=== PATIENT | female | born 1965 | race Caucasian/White ===

== ENCOUNTER 2023-11-14 13:48 | Outpatient (RCR) | payer MEDICARE, SELFPAY ==
[2023-11-14] MEDS: NSS 250 IV (14:29)
[2023-11-14] MEDS: ORENCIA 100 MG IV (14:30)
[2023-11-14 14:36] VITALS: BP 148/76
[2023-11-14 15:31] LABS: Iron 56 ug/dl (37-170)
[2023-11-14 15:40] LABS: Percent Saturation 15 % (20-50); Total Iron Binding Capacity 356 ug/dl (265-497)
[2023-11-14 17:14] LABS: Ferritin 11.7 ng/ml (11.1-264.0)
[2023-11-14 17:28] LABS: Vitamin B12 299 pg/ml (239-931)
== END 2023-11-15 10:51 | disposition home or self-care (01) ==
LOC: OID 13:48
PROVIDERS: ATTENDING PHYSICIAN Internal Medicine Rheumatology; FAMILY PHYSICIAN Family Medicine
DX: M06.4 Inflammatory polyarthropathy (principal); M35.00 Sjogren syndrome, unspecified
CPT/HCPCS: 82607; 82728; 83540; 83550; 96365; J0129

== ENCOUNTER 2023-12-26 12:53 | Outpatient (RCR) | payer MEDICARE, SELFPAY ==
[2023-12-26 13:05] VITALS: BP 150/90
[2023-12-26] MEDS: ORENCIA 100 MG IV (13:20)
[2023-12-26] MEDS: NSS 250 IV (13:20)
== END 2023-12-27 09:12 | disposition home or self-care (01) ==
LOC: OID 12:53
PROVIDERS: ATTENDING PHYSICIAN Internal Medicine Rheumatology; FAMILY PHYSICIAN Family Medicine
DX: M06.4 Inflammatory polyarthropathy (principal); M35.00 Sjogren syndrome, unspecified
CPT/HCPCS: 96365; J0129

== ENCOUNTER 2024-01-30 12:49 | Outpatient (RCR) | payer MEDICARE, SELFPAY ==
[2024-01-30 13:05] VITALS: BP 153/92
[2024-01-30] MEDS: NSS 250 IV (13:26)
[2024-01-30] MEDS: ORENCIA 100 MG IV (13:26)
[2024-01-30 14:15] VITALS: BP 135/80
== END 2024-01-30 14:49 | disposition home or self-care (01) ==
LOC: OID 12:49
PROVIDERS: ATTENDING PHYSICIAN Internal Medicine Rheumatology; FAMILY PHYSICIAN Family Medicine
DX: M06.4 Inflammatory polyarthropathy (principal); M35.00 Sjogren syndrome, unspecified
CPT/HCPCS: 96365; J0129

== ENCOUNTER 2024-03-04 14:51 | Outpatient (RCR) | payer MEDICARE, SELFPAY ==
[2024-03-04 14:25] VITALS: BP 129/68
[2024-03-04] MEDS: NSS 250 IV (15:17)
[2024-03-04] MEDS: ORENCIA 100 MG IV (15:18)
[2024-03-04 15:24] VITALS: BMI 40.5
[2024-03-04 15:27] LABS: % Basophils 0.6 % (0-2); % Eosinophils 1.9 % (0-6); % Immature Granulocytes 0.3 % (0-0.5); % Lymphocytes 22.9 % (20.5-51.1); % Monocytes 5.2 % (1.7-9.3); % Neutrophils 69.1 % (42.2-75.2); Absolute Basophils 0.1 10^3/uL (0-0.2); Absolute Eosinophils 0.2 10^3/uL (0-0.7); Absolute Lymphocytes 2.3 10^3/uL (1.2-3.4); Absolute Monocytes 0.5 10^3/uL (0.1-0.6); Absolute Neutrophils 6.8 10^3/uL (1.4-6.5); Hematocrit 36.8 % (37.0-47.0); Hemoglobin 12.4 g/dL (12.0-16.0); Mean Corp Hgb Conc. 33.7 g/dL (33.0-37.0); Mean Corpuscular Hgb 28.1 pg (27.0-31.0); Mean Corpuscular Volume 83.4 fL (81.0-99.0); Mean Platelet Volume 9.3 fL (7.4-10.4); Nucleated Red Blood Cells % 0 %; Platelet Count 298 10^3/uL (130-400); Red Blood Cell Count 4.41 10^6/uL (4.20-5.40); Red Cell Dist. Width 14.6 % (11.5-14.5); White Blood Cell Count 9.9 10^3/uL (4.8-10.8)
[2024-03-04 15:42] LABS: ALT (SGPT) 21 U/L (0-35); AST (SGOT) 25 U/L (14-36); Albumin 4.2 g/dl (3.5-5.0); Alkaline Phosphatase 83 U/L (38-126); Blood Urea Nitrogen 22 mg/dl (7-17); Carbon Dioxide 23 mmol/L (22-30); Chloride 99 mmol/L (98-107); Estimated Creatinine Clearance 55 ml/min; Glucose 156 mg/dl (70-99); Potassium 5.3 mmol/L (3.5-5.1); Sodium 133 mmol/L (135-145); Total Bilirubin 0.3 mg/dl (0.2-1.3); Total Protein 6.5 g/dl (6.3-8.2); eGFR 39.89
[2024-03-04 15:43] LABS: C-Reactive Protein < 5.00 mg/L (0.0-10.00)
[2024-03-04 16:00] LABS: Erythrocyte Sed Rate 19 mm/hour (0-20)
[2024-03-04 16:52] LABS: TSH 0.34 uIU/ml (0.47-4.68)
[2024-03-05 08:53] LABS: Glycohemoglobin (HgbA1c) 7.3 % (4.0-5.6)
== END 2024-03-23 23:59 | disposition home or self-care (01) ==
LOC: OID 14:51
PROVIDERS: ATTENDING PHYSICIAN Internal Medicine Rheumatology; FAMILY PHYSICIAN Family Medicine; OTHER PHYSICIAN Internal Medicine Endocrinology, Diabetes & Metabolism
DX: M06.4 Inflammatory polyarthropathy (principal); M35.00 Sjogren syndrome, unspecified
CPT/HCPCS: 36415; 80053; 83036; 84443; 85025; 85652; 86140; 96361; 96365; J0129

== ENCOUNTER 2024-04-02 13:33 | Outpatient (RCR) | payer MEDICARE, SELFPAY ==
[2024-04-02 13:51] VITALS: BP 154/76
[2024-04-02] MEDS: NSS 250 IV (14:10)
[2024-04-02] MEDS: ORENCIA 100 MG IV (14:11)
== END 2024-04-03 14:03 | disposition home or self-care (01) ==
LOC: OID 13:33
PROVIDERS: ATTENDING PHYSICIAN Internal Medicine Rheumatology; FAMILY PHYSICIAN Family Medicine; OTHER PHYSICIAN Internal Medicine Endocrinology, Diabetes & Metabolism
DX: M06.4 Inflammatory polyarthropathy (principal); M35.00 Sjogren syndrome, unspecified
CPT/HCPCS: 96365; J0129

== ENCOUNTER 2024-05-07 13:36 | Outpatient (RCR) | payer MEDICARE, SELFPAY ==
[2024-05-07 13:45] VITALS: BP 151/73
[2024-05-07] MEDS: ORENCIA 100 MG IV (14:07)
[2024-05-07] MEDS: NSS 250 IV (14:07)
== END 2024-05-08 09:38 | disposition home or self-care (01) ==
LOC: OID 13:36
PROVIDERS: ATTENDING PHYSICIAN Internal Medicine Rheumatology; FAMILY PHYSICIAN Family Medicine; OTHER PHYSICIAN Internal Medicine Endocrinology, Diabetes & Metabolism
DX: M06.4 Inflammatory polyarthropathy (principal); M35.00 Sjogren syndrome, unspecified
CPT/HCPCS: 96365; J0129

== ENCOUNTER 2024-06-04 13:31 | Outpatient (RCR) | payer MEDICARE, SELFPAY ==
[2024-06-04 13:55] VITALS: BP 154/72
[2024-06-04] MEDS: NSS 250 IV (14:11)
[2024-06-04] MEDS: ORENCIA 100 MG IV (14:15)
== END 2024-06-05 10:49 | disposition home or self-care (01) ==
LOC: OID 13:31
PROVIDERS: ATTENDING PHYSICIAN Internal Medicine Rheumatology; FAMILY PHYSICIAN Family Medicine; OTHER PHYSICIAN Internal Medicine Endocrinology, Diabetes & Metabolism
DX: M06.4 Inflammatory polyarthropathy (principal); M35.00 Sjogren syndrome, unspecified
CPT/HCPCS: 96365; J0129

== ENCOUNTER 2024-07-02 13:53 | Outpatient (RCR) | payer MEDICARE, SELFPAY ==
[2024-07-02 14:29] VITALS: BP 142/71
[2024-07-02] MEDS: ORENCIA 100 MG IV (14:31)
[2024-07-02] MEDS: NSS 250 IV (14:32)
== END 2024-07-24 23:59 | disposition home or self-care (01) ==
LOC: OID 13:53
PROVIDERS: ATTENDING PHYSICIAN Internal Medicine Rheumatology; FAMILY PHYSICIAN Family Medicine; OTHER PHYSICIAN Internal Medicine Endocrinology, Diabetes & Metabolism
DX: M06.4 Inflammatory polyarthropathy (principal); M35.00 Sjogren syndrome, unspecified
CPT/HCPCS: 96365; J0129

== ENCOUNTER 2024-07-30 13:42 | Outpatient (RCR) | payer MEDICARE, SELFPAY ==
[2024-07-30] MEDS: NSS 250 IV (14:08)
[2024-07-30] MEDS: ORENCIA 100 MG IV (14:09)
[2024-07-30 14:13] VITALS: BP 139/90
== END 2024-07-31 10:48 | disposition home or self-care (01) ==
LOC: OID 13:42
PROVIDERS: ATTENDING PHYSICIAN Internal Medicine Rheumatology; FAMILY PHYSICIAN Family Medicine; OTHER PHYSICIAN Internal Medicine Endocrinology, Diabetes & Metabolism
DX: M06.4 Inflammatory polyarthropathy (principal); M35.00 Sjogren syndrome, unspecified
CPT/HCPCS: 96365; J0129

== ENCOUNTER → 2024-08-16 12:34 | Outpatient (REF) | payer MEDICARE, SELFPAY | LOC: MRI 3T 12:34 | PROVIDERS: ATTENDING PHYSICIAN Specialist; FAMILY PHYSICIAN Family Medicine; REFERRING PHYSICIAN Pain Medicine Interventional Pain Medicine | DX: M54.16 Radiculopathy, lumbar region (principal) | CPT/HCPCS: 72148 ==

== ENCOUNTER 2024-08-26 13:39 | Outpatient (RCR) | payer MEDICARE, SELFPAY ==
[2024-08-26 13:58] VITALS: BP 130/90
[2024-08-26] MEDS: ORENCIA 100 MG IV (14:10)
== END 2024-08-27 08:13 | disposition home or self-care (01) ==
LOC: OID 13:39
PROVIDERS: ATTENDING PHYSICIAN Internal Medicine Rheumatology; FAMILY PHYSICIAN Family Medicine; OTHER PHYSICIAN Internal Medicine Endocrinology, Diabetes & Metabolism
DX: M06.4 Inflammatory polyarthropathy (principal); M35.00 Sjogren syndrome, unspecified
CPT/HCPCS: 96365; J0129

== ENCOUNTER → 2024-09-19 15:06 | Outpatient (REF) | payer MEDICARE, SELFPAY | LOC: RAD 15:06 | PROVIDERS: ATTENDING PHYSICIAN Pain Medicine Interventional Pain Medicine; FAMILY PHYSICIAN Family Medicine | DX: Z01.818 Encounter for other preprocedural examination (principal) | CPT/HCPCS: 93005 ==

== ENCOUNTER 2024-10-01 13:38 | Outpatient (RCR) | payer MEDICARE, SELFPAY ==
[2024-10-01 13:50] VITALS: BP 171/94
[2024-10-01] MEDS: ORENCIA 100 MG IV (14:05)
[2024-10-01] MEDS: NSS 250 IV (14:06)
[2024-10-01 14:17] VITALS: BP 150/81
== END 2024-10-02 08:51 | disposition home or self-care (01) ==
LOC: OID 13:38
PROVIDERS: ATTENDING PHYSICIAN Internal Medicine Rheumatology; FAMILY PHYSICIAN Family Medicine; OTHER PHYSICIAN Internal Medicine Endocrinology, Diabetes & Metabolism
DX: M06.4 Inflammatory polyarthropathy (principal); M35.00 Sjogren syndrome, unspecified
CPT/HCPCS: 96365; J0129

== ENCOUNTER 2024-10-29 13:32 | Outpatient (RCR) | payer MEDICARE, SELFPAY ==
[2024-10-29 13:45] VITALS: BP 139/88
[2024-10-29] MEDS: NSS 250 IV (14:07)
[2024-10-29] MEDS: ORENCIA 100 MG IV (14:08)
== END 2024-10-30 09:02 | disposition home or self-care (01) ==
LOC: OID 13:32
PROVIDERS: ATTENDING PHYSICIAN Internal Medicine Rheumatology; FAMILY PHYSICIAN Family Medicine; OTHER PHYSICIAN Internal Medicine Endocrinology, Diabetes & Metabolism
DX: M06.4 Inflammatory polyarthropathy (principal); M35.00 Sjogren syndrome, unspecified
CPT/HCPCS: 96365; J0129

== ENCOUNTER 2024-12-01 13:39 | Outpatient (RCR) | payer MEDICARE, SELFPAY ==
[2024-12-01 14:00] VITALS: BP 136/50
[2024-12-01] MEDS: NSS 250 IV (14:08)
[2024-12-01] MEDS: ORENCIA 100 MG IV (14:08)
== END 2024-12-02 09:45 | disposition home or self-care (01) ==
LOC: OID 13:39
PROVIDERS: ATTENDING PHYSICIAN Internal Medicine Rheumatology; FAMILY PHYSICIAN Family Medicine; OTHER PHYSICIAN Internal Medicine Endocrinology, Diabetes & Metabolism
DX: M06.4 Inflammatory polyarthropathy (principal); M35.00 Sjogren syndrome, unspecified
CPT/HCPCS: 96365; J0129

== ENCOUNTER 2025-01-14 14:11 | Outpatient (RCR) | payer MEDICARE, SELFPAY ==
[2025-01-14] MEDS: NSS 250 IV (14:47)
[2025-01-14] MEDS: ORENCIA 100 MG IV (14:47)
[2025-01-14 14:50] VITALS: BP 146/94
== END 2025-01-15 09:39 | disposition home or self-care (01) ==
LOC: OID 14:11
PROVIDERS: ATTENDING PHYSICIAN Internal Medicine Rheumatology; FAMILY PHYSICIAN Family Medicine; OTHER PHYSICIAN Internal Medicine Endocrinology, Diabetes & Metabolism
DX: M06.4 Inflammatory polyarthropathy (principal); M35.00 Sjogren syndrome, unspecified
CPT/HCPCS: 96365; J0129

== ENCOUNTER 2025-02-10 14:30 | Outpatient (RCR) | payer MEDICARE, SELFPAY ==
[2025-02-10 14:55] VITALS: BP 145/74
[2025-02-10] MEDS: NSS 250 IV (14:57)
[2025-02-10] MEDS: ORENCIA 100 MG IV (14:58)
== END 2025-02-11 11:18 | disposition home or self-care (01) ==
LOC: OID 14:30
PROVIDERS: ATTENDING PHYSICIAN Internal Medicine Rheumatology; FAMILY PHYSICIAN Family Medicine; OTHER PHYSICIAN Internal Medicine Endocrinology, Diabetes & Metabolism
DX: M06.4 Inflammatory polyarthropathy (principal); M35.00 Sjogren syndrome, unspecified
CPT/HCPCS: 96365; J0129

== ENCOUNTER 2025-03-10 14:27 | Outpatient (RCR) | payer MEDICARE, SELFPAY ==
[2025-03-10 14:42] VITALS: BP 129/71
[2025-03-10] MEDS: NSS 250 IV (14:56)
[2025-03-10] MEDS: ORENCIA 100 MG IV (14:56)
== END 2025-03-11 11:23 | disposition home or self-care (01) ==
LOC: OID 14:27
PROVIDERS: ATTENDING PHYSICIAN Internal Medicine Rheumatology; FAMILY PHYSICIAN Family Medicine; OTHER PHYSICIAN Internal Medicine Endocrinology, Diabetes & Metabolism
DX: M06.4 Inflammatory polyarthropathy (principal); M35.00 Sjogren syndrome, unspecified
CPT/HCPCS: 96365; J0129

== ENCOUNTER 2025-04-07 14:07 | Outpatient (RCR) | payer MEDICARE, SELFPAY ==
[2025-04-07 14:35] VITALS: BP 131/82
[2025-04-07] MEDS: NSS 250 IV (14:52)
[2025-04-07] MEDS: ORENCIA 100 MG IV (14:52)
== END 2025-04-08 11:22 | disposition home or self-care (01) ==
LOC: OID 14:07
PROVIDERS: ATTENDING PHYSICIAN Internal Medicine Rheumatology; FAMILY PHYSICIAN Family Medicine; OTHER PHYSICIAN Internal Medicine Endocrinology, Diabetes & Metabolism
DX: M06.4 Inflammatory polyarthropathy (principal); M35.00 Sjogren syndrome, unspecified
CPT/HCPCS: 96365; J0129

== ENCOUNTER → 2025-05-01 10:25 | Outpatient (REF) | payer MEDICARE, SELFPAY | LOC: RCS 10:25 | PROVIDERS: ATTENDING PHYSICIAN Pain Medicine Interventional Pain Medicine; FAMILY PHYSICIAN Family Medicine | DX: Z01.818 Encounter for other preprocedural examination (principal) | CPT/HCPCS: 93005 ==

== ENCOUNTER 2025-05-11 14:25 | Outpatient (RCR) | payer MEDICARE, SELFPAY ==
[2025-05-11 14:40] VITALS: BP 155/81
[2025-05-11] MEDS: ORENCIA 100 MG IV (15:05)
[2025-05-11] MEDS: NSS 250 IV (15:05)
== END 2025-05-12 10:29 | disposition home or self-care (01) ==
LOC: OID 14:25
PROVIDERS: ATTENDING PHYSICIAN Internal Medicine Rheumatology; FAMILY PHYSICIAN Family Medicine; OTHER PHYSICIAN Internal Medicine Endocrinology, Diabetes & Metabolism
DX: M06.4 Inflammatory polyarthropathy (principal); M35.00 Sjogren syndrome, unspecified
CPT/HCPCS: 96365; J0129

== ENCOUNTER 2025-06-10 14:24 | Outpatient (RCR) | payer MEDICARE, SELFPAY ==
[2025-06-10 14:33] VITALS: BP 145/75
[2025-06-10] MEDS: NSS 250 IV (14:51)
[2025-06-10] MEDS: ORENCIA 100 MG IV (14:51)
== END 2025-06-11 10:36 | disposition home or self-care (01) ==
LOC: OID 14:24
PROVIDERS: ATTENDING PHYSICIAN Internal Medicine Rheumatology; FAMILY PHYSICIAN Family Medicine; OTHER PHYSICIAN Internal Medicine Endocrinology, Diabetes & Metabolism
DX: M06.4 Inflammatory polyarthropathy (principal); M35.00 Sjogren syndrome, unspecified
CPT/HCPCS: 96365; J0129

== ENCOUNTER 2025-06-24 06:11 | Day surgery (SDC) | payer MEDICARE, SELFPAY ==
[2025-06-24 08:43] LABS: Glucose - Point of Care 166 mg/dl (70-99)
== END 2025-06-24 10:08 | disposition home or self-care (01) ==
LOC: GI 06:11
PROVIDERS: ATTENDING PHYSICIAN Surgery
DX: Z12.11 Encounter for screening for malignant neoplasm of colon (principal); K64.9 Unspecified hemorrhoids; D12.2 Benign neoplasm of ascending colon; D12.3 Benign neoplasm of transverse colon; K62.1 Rectal polyp; Z86.0100 Personal history of colon polyps, unspecified
CPT/HCPCS: 45385; 45380; 82962; 88305

== ENCOUNTER → 2025-07-02 16:37 | Outpatient (REF) | payer MEDICARE, SELFPAY | LOC: PAVMRI 16:37 | PROVIDERS: ATTENDING PHYSICIAN Specialist; FAMILY PHYSICIAN Family Medicine | DX: M25.512 Pain in left shoulder (principal) | CPT/HCPCS: 73221 ==

== ENCOUNTER 2025-07-08 14:18 | Outpatient (RCR) | payer MEDICARE, SELFPAY ==
[2025-07-08 14:48] VITALS: BP 168/84
[2025-07-08] MEDS: NSS 250 IV (14:55)
[2025-07-08] MEDS: ORENCIA 100 MG IV (14:55)
== END 2025-07-09 11:11 | disposition home or self-care (01) ==
LOC: OID 14:18
PROVIDERS: ATTENDING PHYSICIAN Internal Medicine Rheumatology; FAMILY PHYSICIAN Family Medicine; OTHER PHYSICIAN Internal Medicine Endocrinology, Diabetes & Metabolism
DX: M06.4 Inflammatory polyarthropathy (principal); M35.00 Sjogren syndrome, unspecified
CPT/HCPCS: 96361; 96365; J0129

== ENCOUNTER 2025-08-05 13:38 | Outpatient (RCR) | payer MEDICARE, SELFPAY ==
[2025-08-05 13:45] VITALS: BP 153/81
[2025-08-05] MEDS: ORENCIA 100 MG IV (14:00)
[2025-08-05] MEDS: NSS 250 IV (14:00)
== END 2025-08-06 09:35 | disposition home or self-care (01) ==
LOC: OID 13:38
PROVIDERS: ATTENDING PHYSICIAN Internal Medicine Rheumatology; FAMILY PHYSICIAN Family Medicine; OTHER PHYSICIAN Internal Medicine Endocrinology, Diabetes & Metabolism
DX: M06.4 Inflammatory polyarthropathy (principal); M35.00 Sjogren syndrome, unspecified
CPT/HCPCS: 96365; J0129

== ENCOUNTER 2025-09-09 14:26 | Outpatient (RCR) | payer MEDICARE, SELFPAY ==
[2025-09-09 14:41] VITALS: BP 130/71
[2025-09-09] MEDS: NSS 250 IV (14:57)
[2025-09-09] MEDS: ORENCIA 100 MG IV (14:58)
== END 2025-09-10 11:15 | disposition home or self-care (01) ==
LOC: OID 14:26
PROVIDERS: ATTENDING PHYSICIAN Internal Medicine Rheumatology; FAMILY PHYSICIAN Family Medicine; OTHER PHYSICIAN Internal Medicine Endocrinology, Diabetes & Metabolism
DX: M06.4 Inflammatory polyarthropathy (principal); M35.00 Sjogren syndrome, unspecified
CPT/HCPCS: 96365; J0129